=== PATIENT | male | born 1970 | race Caucasian/White ===

== ENCOUNTER 2023-06-10 13:33 | Emergency (ER) | payer BC | END 2023-06-10 15:07 | disposition home or self-care (01) | LOC: JD.ED 13:33 | DX: S06.0X0A Concussion without loss of consciousness, initial encounter (principal); Z88.8 Allergy status to other drugs, medicaments and biological substances; Z91.018 Allergy to other foods; W19.XXXA Unspecified fall, initial encounter | CPT/HCPCS: 70450; 70450-26; 99283; 99284 ==